=== PATIENT | female | born 1960 | race African-American/Black ===

== ENCOUNTER 2017-09-22 08:19 | Outpatient (CLI) | payer BC | END 2017-09-22 08:20 | disposition home or self-care (01) | LOC: BICMAMMO 08:19 | PROVIDERS: ATTEND Obstetrics & Gynecology | DX: Z12.31 Encounter for screening mammogram for malignant neoplasm of breast (principal); N63.20 Unspecified lump in the left breast, unspecified quadrant | CPT/HCPCS: 77063; 77067 ==

== ENCOUNTER 2018-09-29 07:51 | Outpatient (CLI) | payer BC | END 2018-09-29 07:52 | disposition home or self-care (01) | LOC: BICMAMMO 07:51 | PROVIDERS: ATTEND Obstetrics & Gynecology | DX: Z12.31 Encounter for screening mammogram for malignant neoplasm of breast (principal) | CPT/HCPCS: 77063; 77067 ==

== ENCOUNTER 2019-10-03 07:53 | Outpatient (CLI) | payer BC ==
--- NOTE | 2019-10-03 08:47 | MMO ---
Bilateral MAMMO Bilat Screen [facility]. CLINICAL HISTORY: Patient is 59 years old and is seen for screening. The patient has no family history of breast cancer. The patient has no personal history of cancer. VIEWS: The views performed were: bilateral craniocaudal with tomosynthesis and bilateral mediolateral oblique with tomosynthesis. FILMS COMPARED: The present examination has been compared to prior imaging studies performed at [facility] on 09/02/2015, 09/17/2016, 09/22/2017 and 09/29/2018. This study has been interpreted with the assistance of computer-aided detection. MAMMOGRAM FINDINGS: There are scattered fibroglandular densities. There is a stable oval mass seen in the left breast. There are no suspicious masses, suspicious calcifications, or new areas of architectural distortion. IMPRESSION: THERE IS NO MAMMOGRAPHIC EVIDENCE OF MALIGNANCY. A ROUTINE FOLLOW-UP MAMMOGRAM IN 1 YEAR IS RECOMMENDED. THE RESULTS OF THIS EXAM WERE SENT TO THE PATIENT. ACR BI-RADS Category 2 - Benign finding MAMMOGRAPHY NOTE: 1. A negative mammogram report should not delay a biopsy if a dominant of clinically suspicious mass is present. 2. Approximately 10% to 15% of breast cancers are not detected by mammography. 3. Adenosis and dense breasts may obscure an underlying neoplasm. Reported by: BHAVYA DEL CID MD Electonically Signed: [id number]
== END 2019-10-03 07:54 | disposition home or self-care (01) ==
LOC: BICMAMMO 07:53
PROVIDERS: ATTEND Obstetrics & Gynecology
DX: Z12.31 Encounter for screening mammogram for malignant neoplasm of breast (principal)
CPT/HCPCS: 77063; 77067

== ENCOUNTER 2020-09-20 10:01 | Outpatient (CLI) | payer BC ==
[2020-09-20 22:12] LABS: SARS-CoV-2 PCR by NAA Not Detected (NotDetected)
== END 2020-09-20 10:02 | disposition home or self-care (01) ==
LOC: LABBT 10:01
PROVIDERS: ATTEND Specialist
DX: Z20.822 Contact with and (suspected) exposure to COVID-19 (principal)
CPT/HCPCS: 87635; U0003; U0005

== ENCOUNTER 2020-09-25 12:28 | Day surgery (SDC) | payer BC ==
[2020-09-25] MEDS ORDERED: Sodium Bicarbonate 2.5 MEQ/5 ML VIAL ONE (12:41)
[2020-09-25] MEDS ORDERED: Lidocaine 1% PF 5 ML VIAL ONE (12:41)
[2020-09-25 13:40] VITALS: BP 133/78; TEMP 98.4
[2020-09-25] MEDS ORDERED: FLU VACC QS2020-21(6MOS UP)/PF 60 MCG/0.5 ML SYRINGE IM ONE (14:00)
--- NOTE | 2020-09-25 14:00 | ULT ---
Fine-needle aspiration right thyroid lobe mass sonographic guided Fine-needle aspiration left thyroid lobe mass sonographic guided HISTORY: Thyroid masses bilateral FINDINGS: After The procedure and answering all questions, the dominant mass involving each thyroid lobe was visualiz ed sonographically. Sterile technique, buffered local anesthesia, sonographic guidance, and a medial approach were used t o carefully advance a 25-gauge needle into the heterogeneous solid/cystic mass at the midportion right thyroid lobe. Fine needle aspirate was obtained and submitted to pathology. A total of 4 passes were made. Sterile technique, buffered local anesthesia, sonographic guidance, and a medial approach were used t o carefully advance a 25-gauge needle into the heterogeneous solid/cystic mass at the midportion left thyroid lobe. Fine needle aspirate was obtained and submitted to pathology. A total of 4 passes were made. Postprocedure imaging shows no evidence of complication. Patient tolerated the procedure well and was dismissed in good condition. IMPRESSION : Technically successful sonographic guided FNA bilateral thyroid lobe masses. Pathology pending.
== END 2020-09-25 13:30 | disposition home or self-care (01) ==
LOC: ULT 12:28
PROVIDERS: ATTEND Specialist
PROC: BG44ZZZ Ultrasonography of Thyroid Gland (ICD-10-PCS; principal; 2020-09-25)
PROC: 0GJK3ZZ Inspection of Thyroid Gland, Percutaneous Approach (ICD-10-PCS; principal; 2020-09-25)
DX: E04.2 Nontoxic multinodular goiter (principal); Z88.0 Allergy status to penicillin
CPT/HCPCS: 60100; 76942; 88173; 90471; 90662; G0008

== ENCOUNTER 2020-10-22 08:01 | Outpatient (CLI) | payer BC | END 2020-10-22 08:02 | disposition home or self-care (01) | LOC: BICMAMMO 08:01 | PROVIDERS: ATTEND Obstetrics & Gynecology | DX: Z12.31 Encounter for screening mammogram for malignant neoplasm of breast (principal) | CPT/HCPCS: 77063; 77067 ==

== ENCOUNTER 2021-08-04 07:48 | Outpatient (CLI) | payer BC ==
[2021-08-04 19:53] LABS: SARS-CoV-2 PCR by NAA Not Detected (NotDetected)
== END 2021-08-04 07:49 | disposition home or self-care (01) ==
LOC: LABBT 07:48
PROVIDERS: ATTEND Specialist
DX: Z01.818 Encounter for other preprocedural examination (principal); Z20.822 Contact with and (suspected) exposure to COVID-19
CPT/HCPCS: 93005; 93010; U0003; U0005

== ENCOUNTER 2021-08-07 09:01 | Day surgery (SDC) | payer BC ==
[2021-07-31 12:52] VITALS: BMI 28.7
[2021-08-07] MEDS ORDERED: Xylocaine 1% w/ Epi 1:100K 10 ML VIAL ONE (10:38)
[2021-08-07] MEDS ORDERED: Fentanyl 100 MCG/2 ML VIAL ONE (10:40)
[2021-08-07] MEDS ORDERED: Midazolam HCl 2 mg/2 ml Vial ONE (10:40)
[2021-08-07] MEDS ORDERED: PROPOFOL 200 MG/20 ML VIAL ONE (10:44)
[2021-08-07] MEDS ORDERED: Rocuronium Bromide 10 MG/ML (10ML VIAL) ONE (10:44)
[2021-08-07] MEDS ORDERED: Lidocaine 1% PF 5 ML VIAL ONE (10:44)
[2021-08-07] MEDS ORDERED: Dexamethasone 20 MG/5 ML VIAL ONE (10:44)
[2021-08-07] MEDS ORDERED: Ondansetron PF 4 MG/2 ML Vial ONE (10:44)
== END 2021-08-07 14:30 | disposition home or self-care (01) ==
LOC: SDC 09:01
PROVIDERS: ATTEND Specialist
PROC: 0CB90ZZ Excision of Left Parotid Gland, Open Approach (ICD-10-PCS; principal; 2021-08-07)
DX: D11.0 Benign neoplasm of parotid gland (principal); K21.9 Gastro-esophageal reflux disease without esophagitis; I10 Essential (primary) hypertension; E89.2 Postprocedural hypoparathyroidism; R73.03 Prediabetes; Z79.899 Other long term (current) drug therapy; Z88.0 Allergy status to penicillin
CPT/HCPCS: 88307; C1776; J1100; J2250; J2405; J2704; J3010

== ENCOUNTER 2021-10-24 08:42 | Outpatient (CLI) | payer BC | END 2021-10-24 08:43 | disposition home or self-care (01) | LOC: BICMAMMO 08:42 | PROVIDERS: ATTEND Obstetrics & Gynecology | DX: Z12.31 Encounter for screening mammogram for malignant neoplasm of breast (principal) | CPT/HCPCS: 77063; 77067 ==

== ENCOUNTER 2022-11-20 07:55 | Outpatient (CLI) | payer BC | END 2022-11-20 07:56 | disposition home or self-care (01) | LOC: BICMAMMO 07:55 | PROVIDERS: ATTEND Obstetrics & Gynecology | DX: Z12.31 Encounter for screening mammogram for malignant neoplasm of breast (principal) | CPT/HCPCS: 77063; 77067 ==